=== PATIENT | male | born 1960 | race Caucasian/White ===

== ENCOUNTER 2023-11-01 18:15 | Inpatient (IN) | payer BC ==
[~2023-11-01] VITALS: Ht 180.3 cm; Wt 86.2 kg
[2023-11-01 18:28] VITALS: BP_SYST 137; PULSE 92; RESP 18; TEMP 98.3; O2SAT 95
[2023-11-01 19:10] LABS: HEMATOCRIT 36.5 % (36-54); HEMOGLOBIN 12.6 g/dL (14.0-18.0); MEAN CORPUSCULAR HEMOGLOBIN 29 pg (27-31); MEAN CORPUSCULAR HGB CONC 35 % (32-36); MEAN CORPUSCULAR VOLUME 85 fL (79.0-98.0); PLATELET COUNT (AUTO) 309 K/uL (130-430); RED BLOOD CELL COUNT(AUTO) 4.32 MIL/uL (4.2-6.2); RED CELL DISTRIBUTION WIDTH 14.3 % (9.0-15.0); WHITE BLOOD COUNT (AUTO) 17.9 K/uL (4.8-10.8)
[2023-11-01 19:26] LABS: ANION GAP 7 (5-15); CALCIUM 8.8 mg/dL (8.4-11.0); CARBON DIOXIDE 30 mmol/L (23-29); CHLORIDE 97 mmol/L (98-107); CREATININE 2.16 mg/dL (0.55-1.30); GFR AFRICAN AMERICAN 40 mL/min (>90); GLUCOSE 228 mg/dL (74-106); POTASSIUM 3.7 mmol/L (3.5-5.1); SODIUM SERUM 134 mmol/L (136-145); UREA NITROGEN, BLOOD 30 mg/dL (8-21)
[2023-11-01 19:28] LABS: GFR NON AFRICAN-AMERICAN 33 mL/min (>90)
[2023-11-01 19:29] LABS: PROTHROMBIN TIME 10.2 SECS (9.5-12.5)
[2023-11-01] MEDS ORDERED: PIPERACILLIN/TAZO 4.5GM/DEX-IS 100 ML IV SCH (19:45)
[2023-11-01 19:53] LABS: BILIRUBIN,URINE NEGATIVE (NEGATIVE); COLOR,URINE YELLOW (YELLOW); GLUCOSE,URINE TRACE (NEGATIVE); KETONES,URINE TRACE (NEGATIVE); LEUKOCYTE ESTERASE ,URINE NEGATIVE (NEGATIVE); NITRITE, URINE NEGATIVE (NEGATIVE); PROTEIN URINE 1+ (NEGATIVE); UROBILINOGEN,URINE 0.2 (0.2-1.0)
[2023-11-01 19:58] LABS: ALANINE AMINOTRANSFERASE 19 U/L (12-78); ALBUMIN 3.6 g/dL (3.4-4.8); AMYLASE 27 U/L (0-100); ASPARTATE AMINOTRANSFERASE 15 U/L (10-37); BILIRUBIN,DIRECT 0.3 mg/dL (0.0-0.3); LIPASE 24 U/L (16-77); TOTAL PROTEIN, SERUM 7.9 g/dL (6.4-8.3)
[2023-11-01] MEDS ORDERED: VANCOMYCIN HCL 1.25 GM/NS 250 ML IV ONE (20:00)
[2023-11-01 20:06] LABS: BLOOD, URINE TRACE (NEGATIVE); CLARITY/URINE SLIGHTLY HAZY (CLEAR)
[2023-11-01 20:13] LABS: BACTERIA,URINE FEW /HPF (None Seen); RBC,URINE 0-3 /HPF (0-3); URINE AMORPHOUS URATE 2+ /HPF (None Seen)
[2023-11-01 20:14] LABS: MUCUS,URINE 3+ /LPF (None Seen)
[2023-11-01 20:23] LABS: BAND % (MANUAL) 6 % (0-6); BASOPHILS % (MANUAL) 0 % (0-2); EOSINOPHILS % (MANUAL) 1 % (0-7); LYMPHOCYTES % (MANUAL) 6 % (20-46); MONOCYTES % (MANUAL) 5 % (0-11)
[2023-11-01 20:24] LABS: PLATELET ESTIMATE ADEQUATE (ADEQUATE)
[2023-11-01] MEDS ORDERED: INSULIN REGULAR, HUMAN 100 UNITS/ML, 3 ML VIAL (humuLIN R) SUBCUT PRN (20:30)
[2023-11-01] MEDS: PIPERACILLIN/TAZO 4.5GM/DEX-IS 100 ML IV ONE (21:14)
[2023-11-01] MEDS ORDERED: PIPERACILLIN/TAZOBACTAM 3.375 GM/VIAL (ZOSYN) IV ONE (21:16)
[2023-11-01] MEDS: PIPERACILLIN/TAZO 3.375 GM in NS 50 ML IV SCH (21:23)
[2023-11-01] MEDS ORDERED: NEBI10TA12 PO (22:27)
[2023-11-01] MEDS ORDERED: AMLO5TAB92 PO (22:27)
[2023-11-01] MEDS ORDERED: SEMA1PEN3 SQ (22:27)
[2023-11-01] MEDS ORDERED: HUMALOG (22:27)
[2023-11-01] MEDS ORDERED: LOSA1TAB43 PO (22:27)
[2023-11-01] MEDS ORDERED: ROSU10TA29 PO (22:27)
[2023-11-01] MEDS ORDERED: INSU100I24 SUBCUT (22:27)
[2023-11-01] MEDS: NACL 0.9% 1,000 ML IV ONE (22:45)
[2023-11-01] MEDS ORDERED: DEXTROSE 50% JECT 50 ML DISP.SYRIN IVP PRN (22:45)
[2023-11-01] MEDS ORDERED: INSULIN REGULAR, HUMAN 10 UNITS/0.1 ML, 3 ML VIAL ONE (22:47)
[2023-11-01] MEDS: NACL 0.9% 1,000 ML IV SCH (23:00)
[2023-11-01] MEDS ORDERED: ACETAMINOPHEN 325 MG TABLET PO PRN (23:30)
[2023-11-01] MEDS ORDERED: NALOXONE HCL 0.4 MG/ML AMP (NARCAN) IVP PRN ×2 (23:30)
[2023-11-01] MEDS ORDERED: ONDANSETRON HCL 4 MG/2 ML VIAL IVP PRN (23:30)
[2023-11-01] MEDS ORDERED: HYDROmorphone 1 MG/ML INJ. CARTRIDGE IVP PRN (23:30)
[2023-11-02] VITALS (9 sets, daily range): BP systolic 118–143; PULSE 78–87; RESP 18–20; TEMP 97.5–98.9; O2SAT 95–98
[2023-11-02 05:38] LABS: BASOPHILS # (AUTO) 0.1 K/uL (0.0-0.2); BASOPHILS % (AUTO) 0.5 % (0.0-2.0); EOSINOPHILS # (AUTO) 0.1 K/uL (0.0-0.4); EOSINOPHILS % (AUTO) 0.5 % (0.0-4.0); HEMATOCRIT 31.8 % (36-54); HEMOGLOBIN 10.9 g/dL (14.0-18.0); LYMPHOCYTES % (AUTO) 13.6 % (20.5-51.5); MEAN CORPUSCULAR HEMOGLOBIN 29 pg (27-31); MEAN CORPUSCULAR HGB CONC 34 % (32-36); MEAN CORPUSCULAR VOLUME 85 fL (79.0-98.0); MONOCYTES # (AUTO) 1.7 K/uL (0.0-1.0); MONOCYTES % (AUTO) 11.5 % (1.7-9.3); NEUTROPHILS # (AUTO) 10.9 K/uL (1.8-7.7); NEUTROPHILS % (AUTO) 73.9 % (40.0-70.0); PLATELET COUNT (AUTO) 263 K/uL (130-430); RED BLOOD CELL COUNT(AUTO) 3.76 MIL/uL (4.2-6.2); RED CELL DISTRIBUTION WIDTH 14.2 % (9.0-15.0); WHITE BLOOD COUNT (AUTO) 14.8 K/uL (4.8-10.8)
[2023-11-02 06:01] LABS: ALBUMIN 2.8 g/dL (3.4-4.8); CREATININE 1.96 mg/dL (0.55-1.30); PHOSPHORUS 2.6 mg/dL (2.7-4.5); POTASSIUM 3.4 mmol/L (3.5-5.1); TOTAL BILIRUBIN 0.7 mg/dL (0.0-1.0); TOTAL PROTEIN, SERUM 6.4 g/dL (6.4-8.3)
[2023-11-02] MEDS: PIPERACILLIN/TAZOBACTAM 2.25 GM VIAL IV ONE (06:11)
[2023-11-02] MEDS: PIPERACILLIN/TAZOBACTAM 2.25 GM in D5W 50 ML IV SCH (06:23)
[2023-11-02] MEDS: POTASSIUM CHLORIDE 40 MEQ, LIDOCAINE JECT 2% PF 100 MG 50 MG in NS 250 ML IV ONE (10:12)
[2023-11-02] MEDS ORDERED: LIDOCAINE MPF 2% 20 MG/1 ML, 5 ML VIAL INH ONE (13:05)
[2023-11-02] MEDS ORDERED: KETOROLAC TROMETHAMINE 30 MG VIAL ONE (13:05)
[2023-11-02] MEDS ORDERED: MIDAZOLAM HCL 2 MG/2 ML VIAL (VERSED) ONE (13:05)
[2023-11-02] MEDS ORDERED: LIDOCAINE/EPI 1% 1:100000 20 ML VIAL ONE (13:05)
[2023-11-02] MEDS ORDERED: DESFLURANE 15 MIN GAS INH ONE (13:05)
[2023-11-02] MEDS ORDERED: iopamidoL 50 ML VIAL IV ONE (13:05)
[2023-11-02] MEDS ORDERED: ROCURONIUM BROMIDE 10 MG/ML (ZEMURON) ONE (13:05)
[2023-11-02] MEDS ORDERED: DEXAMETHASONE SOD PHOSPHATE 4 MG/ML VIAL ONE (13:05)
[2023-11-02] MEDS ORDERED: ONDANSETRON HCL 4 MG/2 ML VIAL ONE (13:05)
[2023-11-02] MEDS ORDERED: NS 1000 ML IV.SOLN IV ONE (13:05)
[2023-11-02] MEDS ORDERED: fentaNYL CITRATE/PF 100 MCG/2 ML AMP ONE (13:05)
[2023-11-02] MEDS ORDERED: SUGAMMADEX SODIUM 200 MG/2 ML VIAL IV ONE (13:05)
[2023-11-02] MEDS ORDERED: PROPOFOL 200MG/ 20ML VIAL (DIPRIVAN) IV ONE (13:05)
[2023-11-02] MEDS ORDERED: BUPIVACAINE /PF 0.25% 30 ML VIAL INJ ONE (13:05)
[2023-11-02] MEDS: INSULIN REGULAR, HUMAN 100 UNITS/ML, 3 ML VIAL (humuLIN R) SUBCUT PRN (13:08)
[2023-11-02] MEDS: ACETAMINOPHEN I.V. 1000 MG 100 ML IV ONE (13:30)
[2023-11-02] MEDS ORDERED: iohexoL 240 mgI/mL, 50 ML INFUS..BTL IV ONE (13:54)
[2023-11-02] MEDS ORDERED: hydrALAZINE HCL 20 MG/ML VIAL IVP PRN (14:00)
[2023-11-02] MEDS ORDERED: MEPERIDINE HCL/PF 25 MG/ML DISP.SYRIN IVP PRN (14:00)
[2023-11-02] MEDS: NACL 0.9% 1,000 ML IV SCH ×2 (14:00→15:30)
[2023-11-02] MEDS ORDERED: LABETALOL 100 MG/ 20ML VIAL IVP PRN (14:00)
[2023-11-02] MEDS ORDERED: HYDROmorphone 1 MG/ML INJ. CARTRIDGE IVP PRN ×2 (14:00→15:30)
[2023-11-02] MEDS ORDERED: NALOXONE HCL 0.4 MG/ML AMP (NARCAN) IVP PRN ×2 (15:30)
[2023-11-02] MEDS: ONDANSETRON HCL 4 MG/2 ML VIAL ONE (15:45)
[2023-11-02] MEDS: HYDROmorphone 1 MG/ML INJ. CARTRIDGE ONE (15:48)
[2023-11-02] MEDS: METOCLOPRAMIDE HCL 10 MG/2 ML VIAL IVP PRN (15:50)
[2023-11-02] MEDS: METOCLOPRAMIDE HCL 10 MG/2 ML VIAL ONE (15:52)
[2023-11-02] MEDS: HYDROmorphone 1 MG/ML INJ. CARTRIDGE IVP PRN ×2 (15:55→21:00)
[2023-11-02] MEDS: ceFAZolin SODIUM 2 GM in D5W 100 ML IV SCH (16:00)
[2023-11-02] MEDS: metroNIDAZOLE 500 mg/NS 100 ML IV SCH (19:02)
[2023-11-02] MEDS: 0.45% NACL 1,000 ML IV SCH (20:16)
[2023-11-02 20:17] LABS: CALCIUM 7.6 mg/dL (8.4-11.0); CREATININE 2.13 mg/dL (0.55-1.30); POTASSIUM 4.3 mmol/L (3.5-5.1)
[2023-11-02 21:38] LABS: BILIRUBIN,URINE NEGATIVE (NEGATIVE); BLOOD, URINE 2+ (NEGATIVE); CLARITY/URINE SL CLOUDY (CLEAR); COLOR,URINE YELLOW (YELLOW); GLUCOSE,URINE 1+ (NEGATIVE); KETONES,URINE 1+ (NEGATIVE); LEUKOCYTE ESTERASE ,URINE NEGATIVE (NEGATIVE); NITRITE, URINE NEGATIVE (NEGATIVE); PROTEIN URINE 1+ (NEGATIVE)
[2023-11-02 22:14] LABS: BACTERIA,URINE FEW /HPF (None Seen); WBC,URINE 0-3 /HPF (0-3)
[2023-11-02] MEDS: PIPERACILLIN/TAZO 4.5 GM in D5W 100 ML IV SCH (22:29)
[2023-11-03] VITALS (7 sets, daily range): BP systolic 119–134; PULSE 73–83; RESP 18–19; TEMP 96.9–99.4; O2SAT 95–96
[2023-11-03 05:07] LABS: BASOPHILS % (AUTO) 0.4 % (0.0-2.0); EOSINOPHILS % (AUTO) 0.3 % (0.0-4.0); HEMATOCRIT 27.8 % (36-54); HEMOGLOBIN 9.7 g/dL (14.0-18.0); LYMPHOCYTES # (AUTO) 1.3 K/uL (1.0-5.5); LYMPHOCYTES % (AUTO) 12.4 % (20.5-51.5); MEAN CORPUSCULAR HEMOGLOBIN 30 pg (27-31); MEAN CORPUSCULAR HGB CONC 35 % (32-36); MEAN CORPUSCULAR VOLUME 85 fL (79.0-98.0); MONOCYTES # (AUTO) 1.2 K/uL (0.0-1.0); MONOCYTES % (AUTO) 11.7 % (1.7-9.3); NEUTROPHILS % (AUTO) 75.2 % (40.0-70.0); PLATELET COUNT (AUTO) 242 K/uL (130-430); RED BLOOD CELL COUNT(AUTO) 3.27 MIL/uL (4.2-6.2); RED CELL DISTRIBUTION WIDTH 14.4 % (9.0-15.0); WHITE BLOOD COUNT (AUTO) 10.7 K/uL (4.8-10.8)
[2023-11-03 05:34] LABS: ALBUMIN 2.5 g/dL (3.4-4.8); CALCIUM 7.4 mg/dL (8.4-11.0); CREATININE 2.15 mg/dL (0.55-1.30); POTASSIUM 3.8 mmol/L (3.5-5.1); TOTAL BILIRUBIN 0.5 mg/dL (0.0-1.0); TOTAL PROTEIN, SERUM 6.2 g/dL (6.4-8.3)
[2023-11-03] MEDS: metroNIDAZOLE 500 mg/NS 100 ML IV SCH (10:47)
[2023-11-03] MEDS: TAMSULOSIN HCL 0.4 MG CAP PO SCH (21:45)
[2023-11-03] MEDS: INSULIN GLARGINE 100 UNITS/ML, 10 ML VIAL SUBCUT SCH (22:04)
[2023-11-04] VITALS: BP_SYST 126; PULSE 82; RESP 16; TEMP 99.2; O2SAT 93
[2023-11-04 05:15] LABS: ALBUMIN 2.5 g/dL (3.4-4.8); CALCIUM 7.5 mg/dL (8.4-11.0); CREATININE 1.69 mg/dL (0.55-1.30); POTASSIUM 3.3 mmol/L (3.5-5.1); TOTAL BILIRUBIN 0.5 mg/dL (0.0-1.0); TOTAL PROTEIN, SERUM 6.4 g/dL (6.4-8.3)
[2023-11-04 05:18] LABS: BASOPHILS # (AUTO) 0.1 K/uL (0.0-0.2); BASOPHILS % (AUTO) 0.9 % (0.0-2.0); EOSINOPHILS # (AUTO) 0.2 K/uL (0.0-0.4); EOSINOPHILS % (AUTO) 1.6 % (0.0-4.0); HEMATOCRIT 26.6 % (36-54); HEMOGLOBIN 9.4 g/dL (14.0-18.0); LYMPHOCYTES # (AUTO) 1.3 K/uL (1.0-5.5); LYMPHOCYTES % (AUTO) 13.2 % (20.5-51.5); MEAN CORPUSCULAR HEMOGLOBIN 30 pg (27-31); MEAN CORPUSCULAR HGB CONC 35 % (32-36); MEAN CORPUSCULAR VOLUME 84 fL (79.0-98.0); MONOCYTES # (AUTO) 1.2 K/uL (0.0-1.0); MONOCYTES % (AUTO) 12.4 % (1.7-9.3); NEUTROPHILS # (AUTO) 6.9 K/uL (1.8-7.7); NEUTROPHILS % (AUTO) 71.9 % (40.0-70.0); PLATELET COUNT (AUTO) 251 K/uL (130-430); RED BLOOD CELL COUNT(AUTO) 3.15 MIL/uL (4.2-6.2); RED CELL DISTRIBUTION WIDTH 14.3 % (9.0-15.0); WHITE BLOOD COUNT (AUTO) 9.6 K/uL (4.8-10.8)
[2023-11-04 08:00] VITALS: O2SAT 99
[2023-11-04] MEDS: HYDROcodone/ACETAMIN 5-325 MG TAB (NORCO/ VICODIN) PO PRN (10:52)
[2023-11-04] MEDS ORDERED: INSU100V SUBCUT (10:56)
[2023-11-04 11:20] VITALS: BP_SYST 119; PULSE 77; RESP 19; TEMP 98.5; O2SAT 96
[2023-11-04 16:15] VITALS: BP_SYST 116; PULSE 77; RESP 19; TEMP 98.4; O2SAT 96
[2023-11-04] MEDS: MULTIVITS,CA,MINERALS/IRON/FA 1 TABLET PO ONE (16:49)
[2023-11-04] MEDS: CHOLECALCIFEROL (VITAMIN D3) 2,000 UNIT TABLET PO ONE (16:49)
[2023-11-04] MEDS: POTASSIUM CHLORIDE 20 MEQ TABLET.ER PO ONE (16:49)
[2023-11-04 19:00] VITALS: BP_SYST 142; PULSE 79; RESP 18; TEMP 99; O2SAT 96
[2023-11-04 20:00] VITALS: BP_SYST 142; PULSE 79; RESP 18; TEMP 99; O2SAT 96
[2023-11-05] VITALS: BP_SYST 125; PULSE 75; RESP 18; TEMP 98.5; O2SAT 96
[2023-11-05 04:00] VITALS: RESP 18
[2023-11-05] MEDS: ONDANSETRON HCL 4 MG/2 ML VIAL IVP PRN (06:22)
[2023-11-05 07:08] LABS: BASOPHILS # (AUTO) 0.1 K/uL (0.0-0.2); BASOPHILS % (AUTO) 1.1 % (0.0-2.0); EOSINOPHILS # (AUTO) 0.2 K/uL (0.0-0.4); EOSINOPHILS % (AUTO) 2.5 % (0.0-4.0); HEMATOCRIT 29.2 % (36-54); HEMOGLOBIN 10.2 g/dL (14.0-18.0); LYMPHOCYTES # (AUTO) 1.5 K/uL (1.0-5.5); MEAN CORPUSCULAR HEMOGLOBIN 30 pg (27-31); MEAN CORPUSCULAR HGB CONC 35 % (32-36); MEAN CORPUSCULAR VOLUME 85 fL (79.0-98.0); MONOCYTES # (AUTO) 1.1 K/uL (0.0-1.0); MONOCYTES % (AUTO) 12.5 % (1.7-9.3); NEUTROPHILS # (AUTO) 5.7 K/uL (1.8-7.7); NEUTROPHILS % (AUTO) 65.9 % (40.0-70.0); PLATELET COUNT (AUTO) 300 K/uL (130-430); RED BLOOD CELL COUNT(AUTO) 3.45 MIL/uL (4.2-6.2); RED CELL DISTRIBUTION WIDTH 14.1 % (9.0-15.0); WHITE BLOOD COUNT (AUTO) 8.6 K/uL (4.8-10.8)
[2023-11-05 07:29] LABS: ALBUMIN 2.5 g/dL (3.4-4.8); CALCIUM 8.3 mg/dL (8.4-11.0); CREATININE 1.65 mg/dL (0.55-1.30); POTASSIUM 3.4 mmol/L (3.5-5.1); TOTAL BILIRUBIN 0.4 mg/dL (0.0-1.0); TOTAL PROTEIN, SERUM 6.2 g/dL (6.4-8.3)
[2023-11-05] MEDS: MULTIVITS,CA,MINERALS/IRON/FA 1 TABLET PO SCH (09:49)
[2023-11-05] MEDS: CHOLECALCIFEROL (VITAMIN D3) 2,000 UNIT TABLET PO SCH (09:49)
[2023-11-05 10:37] VITALS: O2SAT 99
[2023-11-05 14:10] VITALS: BP_SYST 152; PULSE 67; RESP 16; TEMP 97.9; O2SAT 95
[2023-11-05] MEDS ORDERED: METR-154 PO (14:23)
[2023-11-05] MEDS ORDERED: ONDA-8 TL (14:24)
[2023-11-05] MEDS ORDERED: LACT1TAB14 PO (14:27)
[2023-11-05] MEDS: POTASSIUM CHLORIDE 20 MEQ TABLET.ER PO ONE (14:43)
[2023-11-05 15:30] VITALS: BP_SYST 139; PULSE 84; RESP 16; TEMP 98; O2SAT 99
[2023-11-05 16:48] VITALS: BP_SYST 157; PULSE 71; RESP 16; TEMP 98.5; O2SAT 96
== END 2023-11-05 16:20 | disposition home or self-care (01) | DRG 853 ==
LOC: SED 18:15 → SMU 20:17
PROVIDERS: ADMIT Internal Medicine; ATTEND Internal Medicine
PROC: 0FC94ZZ Extirpation of Matter from Common Bile Duct, Percutaneous Endoscopic Approach (ICD-10-PCS; 2023-11-02)
PROC: BF502Z0 Other Imaging of Bile Ducts using Fluorescing Agent, Intraoperative (ICD-10-PCS; 2023-11-02)
PROC: 0FT44ZZ Resection of Gallbladder, Percutaneous Endoscopic Approach (ICD-10-PCS; principal; 2023-11-02 13:12)
DX: A41.9 Sepsis, unspecified organism (principal); K65.9 Peritonitis, unspecified; N17.0 Acute kidney failure with tubular necrosis; E44.0 Moderate protein-calorie malnutrition; N39.0 Urinary tract infection, site not specified; K82.A1 Gangrene of gallbladder in cholecystitis; E11.9 Type 2 diabetes mellitus without complications; E78.5 Hyperlipidemia, unspecified; E87.6 Hypokalemia; I12.9 Hypertensive chronic kidney disease with stage 1 through stage 4 chronic kidney disease, or unspecified chronic kidney disease; N18.9 Chronic kidney disease, unspecified; Z68.26 Body mass index [BMI] 26.0-26.9, adult; Z79.899 Other long term (current) drug therapy
CPT/HCPCS: 36415; 71045; 76705; 76770; 80048; 80053; 80076; 81000; 81001; 81015; 82150; 82948; 83037; 83605; 83690; 83735; 84100; 84484; 85007; 85025; 85027; 85610; 85730; 86886; 86900; 86901; 87040; 87081; 88302; 88304; 93005; 97112-GP; 97116-GP; 97530-GP; 99285; C1727; J0131; J1100; J1170; J1815; J1885; J2405; J2543; J2704; J2765; J3010; J3370; J3465; J3480; J3490; J7030; J7050; J7060; Q9966; Q9967